=== PATIENT | female | born 1975 | race Caucasian/White ===

== ENCOUNTER → 2021-06-26 | Outpatient (CLI) | payer BC, SELFPAY ==
--- NOTE | 2021-06-26 | BRBX_PTH ---
PATIENT: RUTH ANN BOYD LOC: [facility] U#:[id number] AGE/SX: 46/F ROOM: RE06/26/[address]: Dr. 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 Negative for atypia or malignancy. See comment. MARLEY:leighton 06/27/2021 COMMENT Correlation with clinical, radiologic findings and appropriate follow up are necessary. MICROSCOPIC DESCRIPTION Slides are reviewed. GROSS DESCRIPTION Received in fixative is one container labeled with the patient's name and designated right breast. The specimen consists of multiple elongated fragments of garcia-yellow fibroadipose tissue that in aggregate measure 1.5 x 0.3 x 0.1 cm. The entire specimen is submitted in one cassette. / MARLEY:leighton 06/26/2021 TC:1 CPT: 65246
== END | disposition home or self-care (01) ==
LOC: LABSPEC 10:08
PROVIDERS: PCP Midwife; Referring Provider Surgery; Visit Provider Surgery
DX: D24.1 Benign neoplasm of right breast (principal)
CPT/HCPCS: 88305